=== PATIENT | female | born 1980 | race Caucasian/White ===

== ENCOUNTER 2017-05-24 13:15 | Emergency (ER) | payer OTHER ==
[~2017-05-24] VITALS: Ht 170.2 cm; Wt 64.6 kg
[~2017-05-24 13:15] MED LIST: COLACE100 MG PO; ENDOCET 5-3251 EACH PO; FEOSOL325 MG PO; IRON325 MG PO; MOTRIN600 MG PO; MOTRIN800 MG PO; NOHOMEMEDS; NORCO 7.5/321 TABLET PO; ONE-A-DAY WOME1 EACH PO; ZOLOFT50 MG PO
[2017-05-24 13:37] VITALS: BP 112/83
[2017-05-24] MEDS ORDERED: PERCOCET 5/31 TABLET PO (15:38)
== END 2017-05-24 16:01 | disposition home or self-care (01) ==
LOC: EME 13:15
DX: S92.511A Displaced fracture of proximal phalanx of right lesser toe(s), initial encounter for closed fracture (principal); W22.8XXA Striking against or struck by other objects, initial encounter; Y99.0 Civilian activity done for income or pay
CPT/HCPCS: 73630; 99281; 99283